=== PATIENT | female | born 1990 | race African-American/Black ===

== ENCOUNTER 2018-08-14 13:14 | Emergency (ER) | payer OTHER ==
[~2018-08-14 13:14] MED LIST: PEPCID20 MG PO; ZOFRAN ODT8 MG PO
[2018-08-14 14:19] VITALS: BP 141/90
== END 2018-08-14 16:03 | disposition home or self-care (01) ==
LOC: ER 13:14
DX: Z53.21 Procedure and treatment not carried out due to patient leaving prior to being seen by health care provider (principal)